=== PATIENT | male | born 1955 | race Caucasian/White ===

== ENCOUNTER 2024-07-01 17:09 | Emergency (ER) | payer MEDICARE ==
[2024-07-01 17:28] VITALS: TEMP 97.9; O2SAT 99
[2024-07-01] MEDS: BABY ASPIRIN 81 MG CHEW PO ONE (17:33)
--- NOTE | 2024-07-01 17:33 | ERPHSYRPT ---
- History of Present Illness Time Seen by Provider: 07/01/24 17:30 Historian: patient, EMS Patient Subjective Stated Complaint: CHEST PAIN Triage Nursing Assessment: Pt brought to the ER by EMS, hypertensive, tachycardic, rates pain as 1/10, pulses normal, skin n/w/d, reports falling a couple of days ago and fractured some ribs, no difficulty breathing, hx of SC and DVT's, appears to be resting comfortably at this time Physician History: Patient is 68-year-old male with significant past medical history of coronary artery disease history of deep vein thrombosis history of COPD diabetes hypertension fell couple 3 days ago and at that time he has a fractured ribs. He is recently visiting some of his friend in [facility], patient lives in [facility], started having substernal chest pain lasted for around 45 minutes show he called ambulance and patient was brought into the emergency room when patient came to the emergency room patient was denying any chest pain. Patient was also denying any shortness of breath dizziness headache nausea vomiting abdominal pain blood in the stool or urine. Timing/Duration: today Activities at Onset: none Location: substernal Associated Symptoms: denies symptoms Prior Chest Pain/Cardiac Workup: no prior chest pain Nitro Today/Relief: 0.4 mg x 2 Aspirin Treatment Today: 81 mg x 4 Allergies/Adverse Reactions: No Known Drug Allergies Allergy (Verified 07/01/24 17:28) Home Medications: No Reportable Medications [No Reported Medications] 07/01/24 [History] Hx Influenza Vaccination/Date Given: Yes (couple of years ago) Hx Pneumococcal Vaccination/Date Given: Yes (couple of years ago) Travel Risk - International Travel Have you traveled outside of the country in past 3 weeks: No - Emerging Infectious Disease Are you exhibiting symptoms associated with any current EIDs: No - Review of Systems Constitutional: No Fever, No Chills Eyes: No Symptoms Ears, Nose, & Throat: No Symptoms Respiratory: No Cough, No Dyspnea Cardiac: Chest Pain, No Edema, No Syncope Abdominal/Gastrointestinal: No Abdominal Pain, No Nausea, No Vomiting, No Diarrhea Genitourinary Symptoms: No Dysuria Musculoskeletal: No Back Pain, No Neck Pain Skin: No Rash Neurological: No Dizziness, No Focal Weakness, No Sensory Changes Psychological: No Symptoms Endocrine: No Symptoms All Other Systems: Reviewed and Negative - Past Medical History Pertinent Past Medical History: Yes Cardiac History: Arrhythmia, Deep Vein Thrombosis, High Cholesterol, Hypertension, Myocardial Infarction ([place]) Respiratory History: COPD Endocrine Medical History: Diabetes Type II - Past Surgical History Past Surgical History: Yes Other Surgical History: DVT REMOVAL X4 ON LEGS AND GRAFT. CUT NERVES IN BACK FOR RAYNAUDS - Social History Smoking Status: Current every day smoker Exposure to second hand smoke: Yes Drug Use: none - Social Determinants of Health Will the patient participate in the screening: Yes Do you worry about a steady place to live?: No Do you have any problems with any of the following?: No known problems In the past 12 months,have you had to go without utilities?: No Transportation Issues: No Has anyone in your support network made you feel unsafe?: No Have you or anyone in your house had to go without enough: No - Nursing Vital Signs Nursing Vital Signs: Initial Vital Signs Temperature 97.9 F 07/01/24 17:11 Pulse Rate 114 H 07/01/24 17:11 Respiratory Rate 25 H 07/01/24 17:11 Blood Pressure 143/84 07/01/24 17:11 O2 Sat by Pulse Oximetry 99 07/01/24 17:11 Pain Scale Pain Intensity 1 - Physical Exam General Appearance: no apparent distress, alert Eye Exam: PERRL/EOMI, eyes nml inspection Ears, Nose, Throat Exam: normal ENT inspection, moist mucous membranes Neck Exam: normal inspection, non-tender, supple, full range of motion Respiratory Exam: normal breath sounds, lungs clear, No respiratory distress Cardiovascular Exam: regular rate/rhythm, normal heart sounds Gastrointestinal/Abdomen Exam: soft, No tenderness, No mass Back Exam: normal inspection, No CVA tenderness, No vertebral tenderness Extremity Exam: normal inspection, normal range of motion Neurologic Exam: alert, oriented x 3, cooperative, normal mood/affect, sensation nml, No motor deficits Skin Exam: normal color, warm, dry SpO2: 99 - Course Nursing assessment & vital signs reviewed: Yes EKG Interpreted by Me: Sinus Rhythm, Non-specific ST Changes Rhythm Strip: Normal Sinus Rhythm - Radiology Exams Chest X-ray Interpretation: Interpreted by me, Reviewed by me Ordered Tests: Active Orders 24 hr Category Date Time Status Filament Tester STAT Care 07/01/24 17:22 Active EKG-ER Only STAT Care 07/01/24 17:21 Active Oxygen-ED Only Nasal Cannula 2 lpm Care 07/01/24 17:21 Active CHEST 1 VIEW (PORTABLE) Stat Exams 07/01/24 17:21 Completed CBC W DIFF Stat Lab 07/01/24 17:32 Completed CMP Stat Lab 07/01/24 17:32 Completed NT PRO BNPII Stat Lab 07/01/24 17:49 Completed TROPONIN Q4H Lab 07/01/24 17:32 Completed Medication Summary Generic Name Dose Route Start Last Admin Trade Name Freq PRN Reason Stop Dose Admin Sodium Chloride 1,000 mls @ 50 mls/hr 07/01/24 17:30 07/01/24 17:41 Sodium Chloride 0.9% 1000 Ml IV 07/31/24 17:29 50 mls/hr .Q20H BAUTISTA Administration Discontinued Medications Generic Name Dose Route Start Last Admin Trade Name Freq PRN Reason Stop Dose Admin Aspirin 324 mg 07/01/24 17:21 07/01/24 17:33 Aspirin 81 Mg Tab.Chew PO 07/01/24 17:22 Not Given STAT ONE Lab/Rad Data: Laboratory Result Diagrams 07/01/24 17:32 07/01/24 17:32 Laboratory Results 07/01/24 07/01/24 07/01/24 Range/Units 17:49 17:32 17:32 WBC (4.23-9.07) x10^3/uL RBC (4.63-6.08) x10^6/uL Hgb (13.7-17.5) g/dL Hct (40.1-51.0) % MCV (79.0-92.2) fL MCH (25.7-32.2) pg MCHC (32.3-36.5) g/dL RDW (11.6-14.4) % Plt Count (163-337) x10^3/uL MPV (9.4-12.4) fL Gran % (34.0-67.9) % Immature Gran % (Auto) (0.001-0.429) % Nucleat RBC Rel Count (0.00-0.2) % Eos # (Auto) (0.04-0.54) x10^3/uL Immature Gran # (Auto) (0.001-0.031) x10^3u/L Absolute Lymphs (auto) (1.32-3.57) x10^3/uL Absolute Monos (auto) (0.30-0.82) x10^3/uL Absolute Nucleated RBC (0.00-0.012) x10^3u/L Lymphocytes % (21.8-53.1) % Monocytes % (5.3-12.2) % Eosinophils % (0.8-7.0) % Basophils % (0.2-1.2) % Absolute Granulocytes (1.78-5.38) x10^3/uL Basophils # (0.01-0.08) x10^3/uL Sodium 136 (135-145) mmol/L Potassium 3.5 (3.5-5.1) mmol/L Chloride 100 (98-107) mmol/L Carbon Dioxide 25 (22-30) mmol/L Anion Gap 13.8 (5-15) MEQ/L BUN 7 L (9-20) mg/dL Creatinine 1.10 (0.66-1.25) mg/dL Estimated GFR 72.2 ML/MIN Glucose 91 (74-106) mg/dL Calcium 8.5 (8.4-10.2) mg/dL Total Bilirubin 1.10 (0.2-1.3) mg/dL AST 56 (17-59) U/L ALT 25 (0-50) U/L Alkaline Phosphatase 78 (38-126) U/L Troponin I < 0.012 (0.000-0.033) ng/mL NT-Pro-B Natriuret Pep 697 (<300) pg/mL Serum Total Protein 6.9 (6.3-8.2) g/dL Albumin 3.8 (3.5-5.0) g/dL 07/01/ Range/Units 17:32 WBC 4.2 L (4.23-9.07) x10^3/uL RBC 3.57 L (4.63-6.08) x10^6/uL Hgb 13.5 L (13.7-17.5) g/dL Hct 39.2 L (40.1-51.0) % MCV 109.8 H (79.0-92.2) fL MCH 37.8 H (25.7-32.2) pg MCHC 34.4 (32.3-36.5) g/dL RDW 14.7 H (11.6-14.4) % Plt Count 134 L (163-337) x10^3/uL MPV 9.8 (9.4-12.4) fL Gran % 60.7 (34.0-67.9) % Immature Gran % (Auto) 0.5 H (0.001-0.429) % Nucleat RBC Rel Count 0.0 (0.00-0.2) % Eos # (Auto) 0.05 (0.04-0.54) x10^3/uL Immature Gran # (Auto) 0.02 (0.001-0.031) x10^3u/L Absolute Lymphs (auto) 1.26 L (1.32-3.57) x10^3/uL Absolute Monos (auto) 0.25 L (0.30-0.82) x10^3/uL Absolute Nucleated RBC 0.00 (0.00-0.012) x10^3u/L Lymphocytes % 30.4 (21.8-53.1) % Monocytes % 6.0 (5.3-12.2) % Eosinophils % 1.2 (0.8-7.0) % Basophils % 1.2 (0.2-1.2) % Absolute Granulocytes 2.52 (1.78-5.38) x10^3/uL Basophils # 0.05 (0.01-0.08) x10^3/uL Sodium (135-145) mmol/L Potassium (3.5-5.1) mmol/L Chloride (98-107) mmol/L Carbon Dioxide (22-30) mmol/L Anion Gap (5-15) MEQ/L BUN (9-20) mg/dL Creatinine (0.66-1.25) mg/dL Estimated GFR ML/MIN Glucose (74-106) mg/dL Calcium (8.4-10.2) mg/dL Total Bilirubin (0.2-1.3) mg/dL AST (17-59) U/L ALT (0-50) U/L Alkaline Phosphatase (38-126) U/L Troponin I (0.000-0.033) ng/mL NT-Pro-B Natriuret Pep (<300) pg/mL Serum Total Protein (6.3-8.2) g/dL Albumin (3.5-5.0) g/dL - Progress Progress: improved Air Movement: good Blood Culture(s) Obtained: No Antibiotics given: No Counseled pt/family regarding: lab results, diagnosis, need for follow-up, rad results Medical Desision Making - Diagnostic Testing Diagnostic test were ordered, analyzed, and reviewed by me: Yes Radiological Interpretation: Interpreted by me, Reviewed by me - Risk of complications Low Risk: Low risk of morbidity from additional dx testing or treatment - Departure Departure Disposition: Home Clinical Impression: Chest pain in adult, Coronary arteriosclerosis in [place] artery COPD (chronic obstructive pulmonary disease) Qualifiers: COPD type: unspecified COPD Qualified Code(s): J44.9 - Chronic obstructive pulmonary disease, unspecified Condition: Stable Critical Care Time: No Referrals: DOCTOR,NO FAMILY [Primary Care Provider] - Follow up/PCP as directed Instructions: Chronic Obstructive Pulmonary Disease, Chest Pain (DC) Additional Instructions: Discharge/Care Plan ZE GAYLE was seen on 07/01/24 in the Emergency Room. The patient was counseled regarding Diagnosis,Lab results, Imaging studies, need for follow up and when to return to the Emergency Room. Prescriptions given: Discharge Note I have spoken with the patient and/or caregivers. I have explained the patient's condition, diagnosis and treatment plan based on the information available to me at this time. I have answered the patient's and/or caregiver's questions and addressed any concerns. The patient and/or caregivers have as good understanding of the patient's diagnosis, condition and treatment plan as can be expected at this point. The vital signs have been stable. The patient's condition is stable and appropriate for discharge from the emergency department. The patient will pursue further outpatient evaluation with the primary care physician or other designated or consulting physician as outlined in the discharge instructions. The patient and/or caregivers are agreeable to this plan of care and follow-up instructions have been explained in detail. The patient and/or caregivers have received these instruction. The patient/and or caregivers are aware that any significant change in condition or worsening of symptoms should prompt an immediate return to this or the closest emergency department or call 911. NALINIZE Chavez was seen on 07/01/24 n the Emergency Room. At that time you were treated for an emergent condition, during your visit Laboratory, Radiology and/or other procedures may have been ordered. It is very important that you follow-up with your Primary Care Physician NO FAMILY DOCTOR within the next 24- 48 hours to review your Emergency Room visit and the final results of testing that was ordered. Some test results such as Urine Cultures, Blood Cultures, and other cultures if ordered will not be finalized for 24-48 hours. If you do not have a Primary Care Provider please call the medical records department at [phone] ext [phone] to obtain a copy of your results or you may sign into our patient portal to obtain these results by visiting us @ [email or web address] and completing the following steps: 1. Click on the Patient Portal link 2. Click the Patient Self Enrollment Link to complete the enrollment form and entering your 3. Once the enrollment form is completed you will receive an email with a temporary ID and password at the email address you provided. 4. Next choose a user name and password. Your user name must be at least 4 characters long and your password must be at least 4 characters long. 5. Choose a security question from the list and provide your answer to the question. If you already have signed into the Health Portal you may access your Health Care Information 28/01 by the following steps: 1. Login to our website @ [email or web address] 2. Enter your original user name and password. FAQS The [facility] Health Portal is an online tool that contains your Lab Results, Radiology Reports, Visit History, Discharge Instructions and Health Summary Lab and Radiology Results will not be available for 72 hours on the portal. The Portal is a secure site, passwords are encryted and URLs are re-written so t hey cannot be copied and pasted. You and authorized family members are the only ones who can access your Portal. Also there is a timeout feature that protects your information if you leave the Portal page open. If you have technical difficulty please use the Contact Us link on the page this will allow you to submit any questions you have regarding the Portal or you may contact the Medical Record Department at [phone] ext [phone].
[2024-07-01] MEDS ORDERED: Sodium Chloride 0.9% 1000 ML 1,000 ML ONE (17:41)
[2024-07-01] MEDS: Sodium Chloride 0.9% 1000 ML 1,000 ML IV SCH (17:41)
[2024-07-01 17:50] LABS: Absolute Neutrophil Ct (ANC) 2.52 x10^3/uL (1.78-5.38); BASOPHIL % 1.2 % (0.2-1.2); Basophil (Absolute #) 0.05 x10^3/uL (0.01-0.08); Eosinophil % 1.2 % (0.8-7.0); Eosinophil (Absolute #) 0.05 x10^3/uL (0.04-0.54); Hematocrit 39.2 % (40.1-51.0); Hemoglobin 13.5 g/dL (13.7-17.5); IMMATURE GRAN # 0.02 x10^3u/L (0.001-0.031); IMMATURE GRAN % 0.5 % (0.001-0.429); Lymphocyte (Absolute #) 1.26 x10^3/uL (1.32-3.57); Lymphocytes % 30.4 % (21.8-53.1); Mean Cell Volume 109.8 fL (79.0-92.2); Mean Corpuscular Hemoglobin 37.8 pg (25.7-32.2); Mean Corpuscular Hgb Concent. 34.4 g/dL (32.3-36.5); Mean Platelet Volume 9.8 fL (9.4-12.4); Monocyte (Absolute #) 0.25 x10^3/uL (0.30-0.82); Neutrophil % 60.7 % (34.0-67.9); Platelet Count 134 x10^3/uL (163-337); Red Blood Count 3.57 x10^6/uL (4.63-6.08); Red Cell Distribution Width 14.7 % (11.6-14.4); White Blood Count 4.2 x10^3/uL (4.23-9.07)
[2024-07-01 18:07] LABS: ALBUMIN 3.8 g/dL (3.5-5.0); ANION GAP 13.8 MEQ/L (5-15); BILIRUBIN,TOTAL 1.1 mg/dL (0.2-1.3); Calcium 8.5 mg/dL (8.4-10.2); Creatinine 1 1.1 mg/dL (0.66-1.25); EST GLOMERULAR FILTRATION RATE 72.2 ML/MIN; Potassium 3.5 mmol/L (3.5-5.1); Total Protein 6.9 g/dL (6.3-8.2)
--- NOTE | 2024-07-01 18:19 | XRAY ---
Indication: Chest pain. Comparison: None Portable chest hyperinflated and clear. Incidental tiny left perihilar calcified granulomas. Heart and mediastinal structures within normal limits. Bony thorax intact with osteopenia, mild degenerative changes, and right infraclavicular surgical clips. Impression: Nonacute hyperinflated chest with chronic features.
[2024-07-01 18:57] VITALS: BP 141/81; PULSE 85; RESP 15
== END 2024-07-01 19:01 | disposition home or self-care (01) ==
LOC: ED 17:09
DX: R07.9 Chest pain, unspecified (principal); I25.10 Atherosclerotic heart disease of native coronary artery without angina pectoris; J44.9 Chronic obstructive pulmonary disease, unspecified
CPT/HCPCS: 36415; 71045; 80053; 83880; 84484; 85025; 93005; 93041; 99284; 99285

== ENCOUNTER 2024-10-23 12:18 | Emergency (ER) | payer MEDICARE ==
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
[2024-10-23 12:26] VITALS: RESP 18; TEMP 98.8; O2SAT 98
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
[2024-10-23 13:30] VITALS: PULSE 88
[2024-10-23 13:36] VITALS: BP 151/92
== END 2024-10-23 14:02 | disposition home or self-care (01) ==
LOC: ED 12:18
DX: S62.617A Displaced fracture of proximal phalanx of left little finger, initial encounter for closed fracture (principal); W18.39XA Other fall on same level, initial encounter; E78.5 Hyperlipidemia, unspecified; I10 Essential (primary) hypertension; E11.9 Type 2 diabetes mellitus without complications; Z72.0 Tobacco use
CPT/HCPCS: 73130; 99283